=== PATIENT | female | born 1965 | race Caucasian/White ===

== ENCOUNTER 2017-08-30 09:12 | Outpatient (CLI) | payer OTHER | END 2017-08-30 22:12 | disposition home or self-care (01) | LOC: SRD 09:12 | PROVIDERS: ATTEND Internal Medicine | DX: M77.32 Calcaneal spur, left foot (principal) | CPT/HCPCS: 73650-TC ==

== ENCOUNTER 2017-12-26 21:16 | Emergency (ER) | payer OTHER ==
[~2017-12-26] VITALS: Ht 149.9 cm; Wt 68.0 kg
[2017-12-26 21:24] VITALS: BP_SYST 168
[2017-12-26] MEDS ORDERED: MAG HYDROX/AL HYDROX/SIMETH 30 ML, BELLADONNA ALKALOIDS/PHENOBARB 10 ML, LIDOCAINE VISC... PO ONE ×3 (21:45)
[2017-12-26 22:14] LABS: BASOPHILS % (AUTO) 0.4 % (0.0-2.0); EOSINOPHILS % (AUTO) 12.9 % (0.0-4.0); HEMATOCRIT 34.3 % (36-48); HEMOGLOBIN 11.8 g/dL (12.0-16.0); LYMPHOCYTES # (AUTO) 2.9 K/uL (1.0-5.5); MEAN CORPUSCULAR HEMOGLOBIN 30 pg (27-31); MEAN CORPUSCULAR HGB CONC 34 % (32-36); MEAN CORPUSCULAR VOLUME 88 fL (79.0-98.0); MONOCYTES # (AUTO) 0.5 K/uL (0.0-1.0); MONOCYTES % (AUTO) 6.6 % (1.7-9.3); NEUTROPHILS # (AUTO) 3.6 K/uL (1.8-7.7); NEUTROPHILS % (AUTO) 44.1 % (40.0-70.0); PLATELET COUNT (AUTO) 209 K/uL (130-430); RED BLOOD CELL COUNT(AUTO) 3.91 MIL/uL (4.2-6.2); RED CELL DISTRIBUTION WIDTH 12.4 % (9.0-15.0)
[2017-12-26 22:53] LABS: BILIRUBIN,URINE NEGATIVE (NEGATIVE); CLARITY/URINE CLEAR (CLEAR); COLOR,URINE YELLOW (YELLOW); GLUCOSE,URINE NEGATIVE (NEGATIVE); KETONES,URINE NEGATIVE (NEGATIVE); LEUKOCYTE ESTERASE ,URINE NEGATIVE (NEGATIVE); NITRITE, URINE NEGATIVE (NEGATIVE); PROTEIN URINE TRACE (NEGATIVE); UROBILINOGEN,URINE 0.2 (0.2-1.0)
[2017-12-26 22:54] LABS: BLOOD, URINE TRACE (NEGATIVE)
[2017-12-26 23:00] LABS: CALCIUM 9.2 mg/dL (8.4-11.0); CREATININE 0.62 mg/dL (0.55-1.30); POTASSIUM 3.6 mmol/L (3.5-5.1)
[2017-12-26 23:05] LABS: ALBUMIN 3.8 g/dL (3.4-4.8); TOTAL BILIRUBIN 0.2 mg/dL (0.0-1.0)
[2017-12-26 23:24] LABS: BACTERIA,URINE FEW /HPF (None Seen)
[2017-12-26 23:40] VITALS: BP_SYST 135
== END 2017-12-26 23:40 | disposition home or self-care (01) ==
LOC: SED 21:16
DX: K29.70 Gastritis, unspecified, without bleeding (principal); K59.00 Constipation, unspecified; R03.0 Elevated blood-pressure reading, without diagnosis of hypertension; E78.00 Pure hypercholesterolemia, unspecified; E66.9 Obesity, unspecified; Z68.30 Body mass index [BMI] 30.0-30.9, adult; Z98.51 Tubal ligation status
CPT/HCPCS: 36415; 74021; 80053; 81000; 81025; 83690; 85025; 87086; 99285; J2001

== ENCOUNTER 2018-12-31 16:59 | Emergency (ER) | payer OTHER ==
[~2018-12-31] VITALS: Ht 149.9 cm; Wt 66.2 kg
[2018-12-31] MEDS ORDERED: LIDOCAINE 1% 10 MG/ML, 20 ML MDV INJ ONE (17:15)
[2018-12-31] MEDS ORDERED: IBUPROFEN 600 MG TABLET PO ONE (17:15)
[2018-12-31] MEDS ORDERED: BACITRACIN 1 GM OINT TP ONE (18:15)
[2018-12-31 19:07] VITALS: BP_SYST 136
== END 2018-12-31 19:07 | disposition home or self-care (01) ==
LOC: SED 16:59
DX: S91.011A Laceration without foreign body, right ankle, initial encounter (principal); E78.00 Pure hypercholesterolemia, unspecified; W25.XXXA Contact with sharp glass, initial encounter; Y93.89 Activity, other specified; Y92.89 Other specified places as the place of occurrence of the external cause; Y99.8 Other external cause status
CPT/HCPCS: 12002; 73610; 73630; 99283; J2001